=== PATIENT | male | born 1980 | race Caucasian/White ===

== ENCOUNTER 2016-11-12 02:11 | Emergency (ER) | payer SELFPAY ==
--- NOTE | 2016-11-12 02:25 | NUR ---
CALLED; PT NOT IN LOBBY.
--- NOTE | 2016-11-12 02:35 | NUR ---
CALLED FOR TRIAGE; NO ANSWER
--- NOTE | 2016-11-12 02:45 | NUR ---
CALLED FOR TRIAGE X3; STILL NOT IN LOBBY. INFORMED PT LEFT.
== END 2016-11-12 03:00 | disposition left against medical advice (07) ==
LOC: ER 02:18
DX: Z53.21 Procedure and treatment not carried out due to patient leaving prior to being seen by health care provider (principal)

== ENCOUNTER 2020-02-15 00:39 | Emergency (ER) | payer SELFPAY ==
[~2020-02-15] VITALS: Ht 188 cm; Wt 90.7 kg
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
[2020-02-15] MEDS ORDERED: LIDOCAINE HCL/PF 1% 30 ML SDV ONE (00:52)
--- NOTE | 2020-02-15 00:55 | NUR ---
AT BEDSIDE FOR LAC REPAIR
--- NOTE | 2020-02-15 00:56 | NUR ---
REPORT CALLED TO [facility] [employer] #[phone].
--- NOTE | 2020-02-15 01:21 | NUR ---
PT REFUSE HEAD CT. ALL RISKS EXPLAINED TO PT, PT REMAINS TO REFUSE HEAD CT. PT AAOX4. ER MADE AWARE.
--- NOTE | 2020-02-15 01:35 | NUR ---
Patient discharged to home in stable condition. Written and verbal after care instructions given. Patient verbalizes understanding of instruction.Pt ambulatory with a steady gait. Pt left without ACI
[2020-02-15 01:43] VITALS: BP 129/74
== END 2020-02-15 01:44 | disposition home or self-care (01) ==
LOC: ER 00:39
DX: S01.311A Laceration without foreign body of right ear, initial encounter (principal); Z88.0 Allergy status to penicillin; Y08.89XA Assault by other specified means, initial encounter; Y93.89 Activity, other specified; Y92.89 Other specified places as the place of occurrence of the external cause; Y99.8 Other external cause status
CPT/HCPCS: 12011; 99282; J3490